=== PATIENT | male | born 1970 | race Caucasian/White ===

== ENCOUNTER → 2019-04-06 09:19 | Outpatient (CLI) | payer OTHER ==
[2011-12-13 07:05] VITALS: BMI 21.6
--- NOTE | ~2019-04-06 | ST ---
PATIENT:SHANIKA NICHOLS II MEDICAL RECORD: [id number] SEX: M LOCATION:[facility] ORDER #: ADMISSION DATE: 04/06/19 AGE OF PATIENT: 49 REFERRING PHYSICIAN: INTERPRETING PHYSICIAN: MAURA BECKER MD DATE OF SERVICE: 04/06/2019 PROCEDURE: EKG stress test INDICATION: Chest pain, hypertension. He was exercised on standard Drew protocol for 10 minutes achieving greater than 85% maximum target heart rate response with no EKG changes, no dysrhythmias, no angina. OVERALL IMPRESSION: Negative for inducible ischemia at adequate cardiac workload. TRANSINT:[id number] Voice Confirmation ID: [id number] DOCUMENT ID: [id number] MAURA BECKER MD CC: [id number] DICTATION DATE: 04/06/19 1343 [employer] SUPERVISOR: 04/07/19 0340 [facility] CLI 04/06/19 [id number] [place] [address]
== END | disposition home or self-care (01) ==
LOC: D.HCCARDIO 09:19
PROVIDERS: ATTEND Internal Medicine Interventional Cardiology
DX: R07.9 Chest pain, unspecified (principal)

== ENCOUNTER → 2019-10-08 17:59 | Outpatient (CLI) | payer OTHER ==
[2011-12-13 07:05] VITALS: BMI 21.6
[2019-10-08 18:43] LABS: ALBUMIN 3.6 g/dL (3.4-5.0); ANION GAP 9.2 mmol/L (8-16); BILIRUBIN - TOTAL 0.39 mg/dL (0.2-1.3); CALCIUM 8.4 mg/dL (8.5-10.1); CARBON DIOXIDE 32.4 mmol/L (21.0-32.0); CREATININE - SERUM 1.4 mg/dL (0.6-1.3); POTASSIUM - SERUM 4.6 mmol/L (3.5-5.1); PROTEIN - SERUM 6.5 g/dL (6.4-8.2)
== END | disposition home or self-care (01) ==
LOC: D.LABREF 17:59
PROVIDERS: ATTEND Nurse Practitioner Adult Health
DX: I10 Essential (primary) hypertension (principal)